=== PATIENT | male | born 1960 | race Hispanic/Latino ===

== ENCOUNTER 2017-06-13 07:54 | Day surgery (SDC) | payer BC ==
[2017-06-06 10:27] VITALS: BMI 28.7
[2017-06-13] MEDS ORDERED: Sodium Chloride 0.9% 1,000 ML IV SCH (08:45)
[2017-06-13] MEDS ORDERED: Propofol 10 mg/ml Inj (20 ML) ONE (08:46)
[2017-06-13 09:48] VITALS: TEMP 97.8
[2017-06-13 10:12] VITALS: O2SAT 99
[2017-06-13 10:46] VITALS: PULSE 51; RESP 17
[2017-06-13 10:47] VITALS: BP 110/73
== END 2017-06-13 11:08 | disposition home or self-care (01) ==
LOC: ENDO 07:54
PROVIDERS: ATTEND Internal Medicine
DX: K21.0 Gastro-esophageal reflux disease with esophagitis (principal); K29.50 Unspecified chronic gastritis without bleeding; B96.81 Helicobacter pylori [H. pylori] as the cause of diseases classified elsewhere; K44.9 Diaphragmatic hernia without obstruction or gangrene; K29.80 Duodenitis without bleeding; Z12.11 Encounter for screening for malignant neoplasm of colon; D12.8 Benign neoplasm of rectum; D12.0 Benign neoplasm of cecum; D12.5 Benign neoplasm of sigmoid colon; D12.3 Benign neoplasm of transverse colon; K57.30 Diverticulosis of large intestine without perforation or abscess without bleeding; K64.8 Other hemorrhoids
CPT/HCPCS: 43239; 45380; 45381; 45385; 82948; 88305; 88312; 88342; J2704; J3010; J7030; J7040

== ENCOUNTER 2018-01-05 07:56 | Day surgery (SDC) | payer BC ==
[2017-06-06 10:27] VITALS: BMI 28.7
[2018-01-05] MEDS ORDERED: Propofol 10 mg/ml Inj (20 ML) ONE ×2 (09:14→09:18)
[2018-01-05] MEDS ORDERED: Sodium Chloride 0.9% 1,000 ML IV SCH (09:15)
[2018-01-05 09:47] VITALS: TEMP 98
[2018-01-05 12:33] VITALS: BP 120/80; PULSE 72; RESP 16; O2SAT 96
== END 2018-01-05 11:27 | disposition home or self-care (01) ==
LOC: ENDO 07:56
PROVIDERS: ATTEND Internal Medicine Gastroenterology
DX: K21.0 Gastro-esophageal reflux disease with esophagitis (principal); B96.81 Helicobacter pylori [H. pylori] as the cause of diseases classified elsewhere; K29.50 Unspecified chronic gastritis without bleeding; K44.9 Diaphragmatic hernia without obstruction or gangrene
CPT/HCPCS: 43239; 88305; 88312; 88342; J2001; J2704; J7030; J7040